=== PATIENT | female | born 2000 | race Caucasian/White ===

== ENCOUNTER 2024-12-20 18:40 | Emergency (ER) | payer BC, SELFPAY ==
[2024-12-20 18:42] VITALS: BP 156/97
[2024-12-20 19:27] VITALS: BMI 22.1
--- NOTE | 2024-12-20 19:27 | EDRN ---
Pt has a gluten intolerance and this past week pt thinks she ate gluten. At nighttime, pt's stomach hurt but says this is not unusual. Pt has had a pain above her belly button all week and yesterday it moved to right abdomen and is constant and pt
says it hurts to walk and sit. Pt says it feels like someone is jabbing into her, like a cramp. No n/v/d/c, fever/chills/cough, cp/sob, urinary symptoms. Pt has been eating all week but says today she ate less due to pain. No abd surgeries.
Last BM today and was normal.
[2024-12-20 19:49] LABS: Hematocrit 39.5 % (37.0-47.0); Hemoglobin 13.3 g/dL (12.0-16.0); Mean Corp Hgb Conc. 33.7 g/dL (33.0-37.0); Mean Corpuscular Volume 78.8 fL (81.0-99.0); Nucleated Red Blood Cells % 0 %; Platelet Count 247 10^3/uL (130-400); Red Cell Dist. Width 13.1 % (11.5-14.5); Urine Character Clear (Clear)
--- NOTE | 2024-12-20 19:57 | ED.GENMED ---
History of Present Illness
General
Chief Complaint: Abdominal Pain
Source: patient
Exam Limitations: none
Time Seen by Provider: 12/20/24 19:36
History of Present Illness
History of Present Illness:
24-year-old otherwise healthy female presents complaining of persistent right upper quadrant abdominal pain starting yesterday worse today. This was preceded by mid abdominal pain earlier this week after ingesting some gluten products. She has a
gluten sensitivity. The pain she experiences today is different than her typical pain when she ingests gluten. The pain does not radiate to the back. There is no associated nausea vomiting or fever. She has a good appetite and has been eating
well. Currently the pain is not made worse with eating. She has been moving her bowels. Last menstrual cycle was about 2 weeks ago which was normal. No prior abdominal surgical history. No other complaint
Phy Exam
Physical Exam
Physical Exam:
General: Well-appearing female no acute respiratory distress
HEENT normal cephalic atraumatic
Heart: Regular rate and rhythm lungs: Clear no wheeze
Abdomen is soft tender to the right upper quadrant no guarding no mildly positive Willams sign
Extremities: No cyanosis
Course
Orders/Labs/Results
Orders:
Orders
12/20/24 19:30
IV Insert/Care/Rem.- Treatment PRN
Test Result ONCE
12/20/24 19:37
Complete Blood Count/With Diff Urgent
Comprehensive Metabolic Panel Urgent
HCG, Serum Qualitative Screen Urgent
Comment: Notify provider if positive test present
Lipase Urgent
Urinalysis Reflex To Culture Urgent
Date Specimen was Collected: 12/20/24
Time Specimen was Collected: 19:30
12/20/24 19:56
Iohexol [Omnipaque] See Protocol PO NOW STA
Ketorolac [Toradol] 15 mg IV NOW STA
US Abdomen Complete/Upper Urgent
Comment:
Reason For Exam: RUQ pain
12/20/24 20:43
CT Abd/pel W Iv And Oral Contr Urgent
Comment:
Reason For Exam: right abdominal pain
Iohexol [Omnipaque] See Protocol PO NOW STA
Abnormal Lab Results
12/20/24
19:37
MCV 78.8 L fL
(81.0-99.0)
MCH 26.5 L pg
(27.0-31.0)
Absolute Lymphs (auto) 3.7 H 10^3/uL
(1.2-3.4)
Absolute Monos (auto) 0.7 H 10^3/uL
(0.1-0.6)
Glucose 107 H mg/dl
(70-99)
12/20/24 19:37
12/20/24 19:37
Vital Signs
Initial and Last Documented VS:
Initial Vital Signs
Temp Pulse Resp BP Pulse Ox
98.1 F 105 20 156/97 99
12/20/24 18:42 12/20/24 18:42 12/20/24 18:42 12/20/24 18:42 12/20/24 18:42
Last Documented Vital Signs
Temp Pulse Resp BP Pulse Ox
98.1 F 81 17 123/73 100
12/20/24 18:42 12/20/24 23:00 12/20/24 23:00 12/20/24 23:00 12/20/24 21:00
MDM/Problems Addressed
Differential Diagnosis Includes:
Patient with right upper quadrant abdominal pain. Consider biliary colic versus gastritis versus pancreatitis versus constipation. Will start with ultrasound of the abdomen. In the event ReSound is negative will consider CT. Patient will be
starting her oral contrast now while waiting for the ultrasound. Will check labs. Treat with Toradol.
*Pulse Oximetry
SaO2: 99
Oxygen Mode of Delivery: Room air
Patient hypoxic: no
*Critical Care Note
Total Time (30-74mins, 75-104mins- exclusive of procedures): Not Applicable
Update Note
Update Note:
Ultrasound negative. Patient proceed with CT scan which shows a normal appendix and normal intestines however there is some free peritoneal fluid inferior to the right ovary. Question possible ovarian cyst. Patient did have some relief with
Toradol. Recommended continued use of NSAIDs. Stable for discharge
ED Attending Note
-
Portions of this chart may have been created with voice recognition software.� Occasional wrong word or��sound alike� substitutions may have occurred due to the inherent limitations of voice recognition software.
Discharge Plan
Departure
Patient Disposition: Home (Routine Discharge)
Date of Disposition: 12/20/24
Time of Disposition: 23:35
Patient with high blood pressure during this ER visit?: No
Discharge Problem:
Abdominal pain
Instructions: Ovarian Cyst (DC)
Prescriptions:
No Action
methylphenidate HCl [Ritalin] 5 mg Tablet
5 mg PO DAILY PRN (Reason: adhd)
methylphenidate HCl [Concerta] 54 mg Tablet Extended Release 24hr
54 mg PO DAILY PRN (Reason: adhd)
escitalopram oxalate [Lexapro] 5 mg Tablet
5 mg PO DAILY
Control Pill
1 tab PO DAILY
Patient Comments:
pt does not know name of pill
Referrals:
Shiva Gold DO [Family Provider, Family Practice]
Activity Restrictions/Additional Instructions:
Continue with ibuprofen for pain. 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
Interventions
Interventions:
*Risk Screen - Suicide Last Done: 12/20/24 19:24
*General Assessment Last Done: 12/20/24 18:42
*Neglect/Abuse Screening Last Done: 12/20/24 19:24
*ED- Fall Risk Assessment Last Done: 12/20/24 19:24
HF-Dmlcaj-Szbdskfxfn Assessment Last Done: 12/20/24 19:41
Discharge Date and Time
Print Language: BURKINAN
[2024-12-20 19:58] LABS: HCG, Serum Qualitative Screen Negative
[2024-12-20 20:04] LABS: ALT (SGPT) 14 U/L (0-35); AST (SGOT) 19 U/L (14-36); Albumin 4.6 g/dl (3.5-5.0); Alkaline Phosphatase 59 U/L (38-126); Blood Urea Nitrogen 11 mg/dl (7-17); Calcium 9.3 mg/dl (8.4-10.2); Carbon Dioxide 27 mmol/L (22-30); Chloride 105 mmol/L (98-107); Estimated Creatinine Clearance 102 ml/min; Glucose 107 mg/dl (70-99); Lipase 62 U/L (23-300); Potassium 3.9 mmol/L (3.5-5.1); Sodium 139 mmol/L (135-145); Total Protein 7.9 g/dl (6.3-8.2); eGFR > 60.00
[2024-12-20] MEDS: TORADOL 15 MG IV (20:20)
[2024-12-20] MEDS: OMNIPAQUE 50 ML PO (20:22)
[2024-12-20 20:58] VITALS: BP 119/65
[2024-12-20 21:00] VITALS: BP 120/77
[2024-12-20 22:46] VITALS: BP 119/69
[2024-12-20 23:00] VITALS: BP 123/73
== END 2024-12-20 23:44 | disposition home or self-care (01) ==
LOC: EMR 18:40
PROVIDERS: EMERGENCY PHYSICIAN Emergency Medicine; FAMILY PHYSICIAN Family Medicine
DX: R10.11 Right upper quadrant pain (principal); Z79.3 Long term (current) use of hormonal contraceptives
CPT/HCPCS: 99284; 96374; 74177; 76700; 80053; 81003; 83690; 84703; 85025; Q9967